=== PATIENT | male | born 1990 | race Caucasian/White ===

== ENCOUNTER 2017-04-13 14:18 | Emergency (ER) | payer BC, OTHER ==
[2017-04-13 14:26] VITALS: TEMP 98.2; O2SAT 97
--- NOTE | 2017-04-13 14:44 | C.PDOC ---
History Of Present Illness 26 year old male presents to the ED for evaluation of nausea which began earlier today. Patient also reports a headache due to the nausea. Patient presents to the ED for evaluation as well as a work note because he has run out of sick days. Patient denies fever, chills, abdominal pain, vomiting, or sick contacts. Time Seen by Provider: 04/13/17 14:28 Chief Complaint (Nursing): GI Problem History Per: Patient History/Exam Limitations: no limitations Onset/Duration Of Symptoms: Hrs Current Symptoms Are (Timing): Still Present Quality Of Discomfort: denies: "Pain" Associated Symptoms: Nausea. denies: Fever, Chills, Vomiting Additional History Per: Patient Past Medical History Reviewed: Historical Data, Nursing Documentation, Vital Signs Vital Signs: Last Vital Signs Temp 98.2 F 04/13/17 15:06 Pulse 92 H 04/13/17 15:06 Resp 18 04/13/17 15:06 BP 116/72 04/13/17 15:06 Pulse Ox 97 04/13/17 15:06 - Medical History PMH: No Chronic Diseases Surgical History: No Surg Hx Family History: States: Unknown Family Hx - Social History Hx Tobacco Use: Yes Hx Alcohol Use: Yes Hx Substance Use: No - Immunization History Hx Tetanus Toxoid Vaccination: No Hx Influenza Vaccination: No Hx Pneumococcal Vaccination: No Review Of Systems Constitutional: Negative for: Fever, Chills Gastrointestinal: Positive for: Nausea. Negative for: Vomiting, Abdominal Pain Neurological: Positive for: Headache Physical Exam - Physical Exam Appears: Non-toxic, No Acute Distress Skin: Normal Color, Warm, Dry Eye(s): bilateral: Normal Inspection Oral Mucosa: Moist Neck: Supple Chest: Symmetrical, No Deformity Cardiovascular: Rhythm Regular Respiratory: Normal Breath Sounds Gastrointestinal/Abdominal: Soft, No Tenderness, No Guarding, No Rebound Extremity: Normal ROM Neurological/Psych: Oriented x3, Normal Speech, Normal Cognition Gait: Steady ED Course And Treatment O2 Sat by Pulse Oximetry: 97 (on RA) Pulse Ox Interpretation: Normal Reassessment Condition: Improved Medical Decision Making Medical Decision Making: Patient states he only wants a work note and refuses further work up at this time. Progress: Zofran PO administered. On reassessment, patient is resting comfortably, showing no signs of distress and reports an improvement in his symptoms. Patient is stable for discharge and is advised to follow up with his PMD within 1-2 days for further evaluation. Disposition - Disposition Referrals: [facility] [Outside] Disposition: HOME/ ROUTINE Disposition Time: 14:56 Condition: GOOD Additional Instructions: Follow up with the medical doctor within 1-2 days. Return if worsened. Prescriptions: Ondansetron ODT [Zofran ODT] 1 odt PO BID PRN #10 odt PRN Reason: Nausea/Vomiting Instructions: Acute Nausea and Vomiting (ED) Forms: [employer] ([place]wana), Work Excuse - Clinical Impression Clinical Impression: Nausea, Headache - PA / [employer] / Resident Statement MD/DO has reviewed & agrees with the documentation as recorded. - Scribe Statement The provider has reviewed the documentation as recorded by the Scribe (Hilda Parisi) All medical record entries made by the Scribe were at my direction and personally dictated by me. I have reviewed the chart and agree that the record accurately reflects my personal performance of the history, physical exam, medical decision making, and the department course for this patient. I have also personally directed, reviewed, and agree with the discharge instructions and disposition.
--- NOTE | 2017-04-13 14:55 | C.PDOC ---
Time Seen by Provider: 04/13/17 14:28 Chief Complaint (Nursing): GI Problem Past Medical History Vital Signs: Last Vital Signs Temp 98.2 F 04/13/17 14:24 Pulse 108 H 04/13/17 14:24 Resp 20 04/13/17 14:24 BP 117/87 04/13/17 14:24 Pulse Ox 97 04/13/17 14:43 - Medical History PMH: No Chronic Diseases Surgical History: No Surg Hx Family History: States: Unknown Family Hx - Social History Hx Tobacco Use: Yes Hx Alcohol Use: Yes Hx Substance Use: No - Immunization History Hx Tetanus Toxoid Vaccination: No Hx Influenza Vaccination: No Hx Pneumococcal Vaccination: No ED Course And Treatment O2 Sat by Pulse Oximetry: 97 (on RA) Disposition - Disposition Forms: [email or web address] (Salvadorean)
[2017-04-13 15:09] VITALS: BP 116/72; PULSE 92; RESP 18
== END 2017-04-13 15:10 | disposition home or self-care (01) ==
LOC: C.ER 14:18
DX: R11.0 Nausea (principal); R51 Headache

== ENCOUNTER 2018-05-26 22:26 | Emergency (ER) | payer BC ==
--- NOTE | 2018-05-26 23:21 | C.PDOC ---
History Of Present Illness 28 year old male presents to the ED complaining of recurrent abscesses. Reports he had abscesses on his back years ago that were surgically treated. States he has recurrent abscesses on his groin and perineal area. He stays that as one is healing he has another one developing. Patient sts he recently "popped up' one of them, got purulent discharge, but still has pain. Denies any fever or chills. Time Seen by Provider: 05/26/18 22:37 Chief Complaint (Nursing): Abnormal Skin Integrity History Per: Patient History/Exam Limitations: no limitations Onset/Duration Of Symptoms: Days Current Symptoms Are (Timing): Still Present Quality Of Symptoms: Painful Past Medical History Reviewed: Historical Data, Nursing Documentation, Vital Signs Vital Signs: Last Vital Signs Temp 97.8 F 05/26/18 22:29 Pulse 89 05/26/18 22:29 Resp 16 05/26/18 22:29 BP 115/81 05/26/18 22:29 Pulse Ox 97 05/26/18 22:29 - Medical History PMH: No Chronic Diseases Surgical History: Back Surgery (abscess) Family History: States: No Known Family Hx - Social History Hx Tobacco Use: Yes Hx Alcohol Use: Yes Hx Substance Use: No - Immunization History Hx Tetanus Toxoid Vaccination: No Hx Influenza Vaccination: No Hx Pneumococcal Vaccination: No Review Of Systems Except As Marked, All Systems Reviewed And Found Negative. Constitutional: Negative for: Fever, Chills Skin: Positive for: Other (abscess in the groin area ) Physical Exam - Physical Exam Appears: Non-toxic, No Acute Distress Skin: Warm, Dry, No Rash, Other (significant scarring on groin and perineal area, no fluctuance, no active drainage, no bleeding ) Head: Atraumatic, Normacephalic Eye(s): bilateral: Normal Inspection Neck: Supple Chest: Symmetrical Cardiovascular: Rhythm Regular Extremity: Normal ROM Neurological/Psych: Oriented x3, Normal Speech Gait: Steady ED Course And Treatment O2 Sat by Pulse Oximetry: 97 (RA) Pulse Ox Interpretation: Normal Progress Note: Patient given Cleocin. Instructed to follow up with drug abuse treatment specialist in 1-2 days. Disposition - Disposition Referrals: Guevara Hook MD [Staff Provider] - Disposition: HOME/ ROUTINE Disposition Time: 23:18 Condition: STABLE Additional Instructions: Follow up with drug abuse treatment specialist within 1-2 days. return to Ed if feel worse. 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 - Scribe Statement The provider has reviewed the documentation as recorded by the Scribe Marlene Herrera All medical record entries made by the Aleksandar were at my direction and personally dictated by me. I have reviewed the chart and agree that the record accurately reflects my personal performance of the history, physical exam, medical decision making, and the department course for this patient. I have also personally directed, reviewed, and agree with the discharge instructions and disposition.
[2018-05-26 23:34] VITALS: BP 135/76; PULSE 85; RESP 18; TEMP 98.3
[2018-05-27 02:23] VITALS: O2SAT 97
== END 2018-05-26 23:34 | disposition home or self-care (01) ==
LOC: C.ER 22:26
DX: L73.2 Hidradenitis suppurativa (principal)